=== PATIENT | female | born 1990 | race Two or more races ===

== ENCOUNTER 2017-02-22 20:25 | Emergency (ER) | payer OTHER ==
[~2017-02-22] VITALS: Ht 160 cm; Wt 96.5 kg
[2017-02-22 20:45] VITALS: BP 111/65
[2017-02-22 21:35] LABS: HEMATOCRIT 39.8 % (36.0-46.0); MCH 28.3 PG (29.0-34.0); MCHC 31.9 G/DL (30.0-36.0); MCV 88.6 FL (83-99); MEAN PLAT.VOLUME 9.9 uM^3 (9.5-12.4); PLATELET COUNT 193 K/uL (156-360); RBC DIS.WIDTH-CV 13.1 % (11.8-14.6); RBC DIS.WIDTH-SD 42.6 % (39-53); RED BLOOD COUNT 4.49 M/uL (3.80-5.20); WHITE BLOOD COUNT 9.3 K/uL (4.1-10.2)
[2017-02-22 21:57] LABS: CHLORIDE 106 mEq/L (99-109); POTASSIUM 4.5 mEq/L (3.7-5.4); SODIUM 142 mEq/L (136-147)
[2017-02-22 21:59] LABS: GLUCOSE 83 mg/dL (70-99)
[2017-02-22 22:00] LABS: ANION GAP 10 MEQ/L (2-14)
[2017-02-22 22:03] LABS: GFR ESTIMATE (CALCULATED) > 59 mL/min/; UREA NITROGEN (BUN) 18 mg/dL (9-23)
[2017-02-22 22:39] LABS: ADD MIUA? YES; BILIRUBIN NEGATIVE; BLOOD SMALL; COLOR YELLOW ((YELLOW)); GLUCOSE (STRIP) NEGATIVE; KETONES NEGATIVE; LEUKOCYTES LARGE; NITRITE NEGATIVE; PROTEIN (STRIP) 30; SPECIFIC GRAVITY 1.023 (1.000-1.030); UROBILINOGEN 0.2 MG/DL (0.2-1.0)
[2017-02-22 22:42] LABS: QUANTITATIVE HCG < 4.0 MIU/ML
[2017-02-22 22:54] LABS: BACTERIA RARE /HPF; EPITHELIAL CELLS 1+ /HPF; MUCUS TRACE /LPF; UCUL ADDED? NO; WHITE BLOOD CELLS 30-40 /HPF (0-5)
[2017-02-22] MEDS ORDERED: KEFLEX500 MG PO (23:07)
[2017-02-22] MEDS ORDERED: DIFLUCAN150 MG PO (23:07)
== END 2017-02-22 23:43 | disposition home or self-care (01) ==
LOC: EME 20:25 → EXP 20:25
PROVIDERS: Physician Assistant
DX: J02.0 Streptococcal pharyngitis (principal); B37.3 Candidiasis of vulva and vagina
CPT/HCPCS: 71020; 80048; 81003; 84702; 85027; 87651 90; 99281; 99285